=== PATIENT | male | born 1995 | race Caucasian/White ===

== ENCOUNTER 2019-01-19 13:26 | Emergency (ER) | payer BC ==
[~2019-01-19] VITALS: Ht 182.9 cm; Wt 77.1 kg
[~2019-01-19 13:26] MED LIST: HYDROXYZINE PAM25 M1 GT; PREDNISONE 20 M20 M1 PO; PROAIR HFA8.5 GM INH; QUETIAPINE FUMA50 MG PO; ZOLOFT50 MG PO; ZYRTEC10 MG
[2019-01-19 13:34] VITALS: BP 187/125
== END 2019-01-19 13:40 | disposition home or self-care (01) ==
LOC: M.ERS 13:26
DX: S39.013A Strain of muscle, fascia and tendon of pelvis, initial encounter (principal); F17.210 Nicotine dependence, cigarettes, uncomplicated; X58.XXXA Exposure to other specified factors, initial encounter; Y93.89 Activity, other specified; Y92.89 Other specified places as the place of occurrence of the external cause; Y99.8 Other external cause status